=== PATIENT | female | born 1995 | race Caucasian/White ===

== ENCOUNTER 2021-01-14 20:37 | Emergency (ER) | payer BC, OTHER ==
[~2021-01-14] VITALS: Ht 154.9 cm; Wt 72.6 kg
[2021-01-14 20:56] VITALS: BP 106/67
[2021-01-14 22:54] VITALS: BP 116/66
== END 2021-01-14 22:54 | disposition home or self-care (01) ==
LOC: MED 20:37
DX: F32.9 Major depressive disorder, single episode, unspecified (principal); J45.909 Unspecified asthma, uncomplicated
CPT/HCPCS: 99281